=== PATIENT | male | born 1980 | race Caucasian/White ===

== ENCOUNTER 2017-03-10 08:07 | Emergency (ER) | payer OTHER ==
[2017-03-10] MEDS ORDERED: Fluorescein Opthalmic Strip ONE (08:59)
[2017-03-10] MEDS ORDERED: Tetracaine HCl 0.5% Ophth Soln 2 ML Bottle ONE (08:59)
[2017-03-10] MEDS ORDERED: Sodium Chloride 0.9% 250 ML 250 ML ONE (09:10)
[2017-03-10] MEDS ORDERED: Ibuprofen 200 MG TAB ONE (09:10)
[2017-03-10] MEDS ORDERED: Adacel (T-DAP) 0.5 ML VIAL ONE (09:18)
== END 2017-03-10 09:38 | disposition home or self-care (01) ==
LOC: NAV ERS 08:07
DX: T15.91XA Foreign body on external eye, part unspecified, right eye, initial encounter (principal); H10.89 Other conjunctivitis; F17.210 Nicotine dependence, cigarettes, uncomplicated
CPT/HCPCS: 90471; 90715; J7050